=== PATIENT | female | born 1970 | race African-American/Black ===

== ENCOUNTER 2017-10-30 13:43 | Emergency (ER) | payer MEDICAID ==
[~2017-10-30] VITALS: Ht 165.1 cm; Wt 87.1 kg
[~2017-10-30 13:43] MED LIST: ABILIFY30 MG ORAL; AF130 GM TOPIC; AUGMENTIN 875-1 EAC1 ORAL; BENADRYL ALLERG25 M1 PO; CLOTRIMAZOLE AF30 GM TOPIC; DOXYCYCLINE MO100 MG ORAL; IBUPROFEN600 MG ORAL; NKM; WELLBUTRIN SR200 MG ORAL
[2017-10-30 14:02] VITALS: BP 129/79
--- NOTE | 2017-10-30 14:08 | Emergency Room Report ---
History of Present Illness General Chief Complaint: Upper Extremity Injury Source: Patient (Andrew Best) Present Illness HPI 47-year-old female patient presents ER complaining of swelling of her right fingers. Patient is wearing a cast on her hands and wrists due to reports that she fractured her thumb and wrist and fifth metacarpal. Reports cast has been on for 7 months. Reports that cast was put on after injuring her hand and wrist in [place] in [place]. Reports recently released. states she "does not know why" cast is still on. reports this cast was put on in July 2017. Reports has not followed up with primary care provider or contract administration specialist. reports is right-hand dominant. Reports swelling has gone down since this morning. Denies recent trauma. (Andrew Best) Allergies: Coded Allergies: No Known Allergies (Unverified , 12/06/13) Patient History Past Medical History: see triage record Now: No Reviewed Nursing Documentation: PMH: Agreed; PSxH: Agreed (Andrew Best) Nursing Documentation-PMH Past Medical History: No History, Except For Hx Asthma: Yes (Andrew Best) Review of Systems All Other Systems: negative except mentioned in HPI (Andrew Best) Physical Exam Vital Signs Date Time Temp Pulse Resp B/P (MAP) Pulse Ox O2 Delivery O2 Flow Rate FiO2 10/30/17 13:52 98.3 94 20 136/82 99 Room Air 98.2 Sp02 EP Interpretation: reviewed, normal General Appearance: well appearing, no apparent distress, alert, GCS 15, non- toxic Head: normocephalic, atraumatic Eyes: bilateral eye normal inspection, bilateral eye PERRL ENT: hearing grossly normal, normal pharynx, no angioedema, normal voice, uvula midline, moist mucus membranes Neck: full range of motion Respiratory: lungs clear, normal breath sounds, no rhonchi, no respiratory distress, no accessory muscle use, no wheezing, speaking full sentences Cardiovascular #1: regular rate, rhythm, no edema Cardiovascular #2: 2+ radial (R), 2+ radial (L) Musculoskeletal: back normal, digits/nails normal, gait/station normal, non- tender, decreased range of motion - right wrist and hand due to pain and stiffness, other - neurovascularly intact, Refill less than 2 seconds in all digits, no snuffbox tenderness, able to wiggle fingers, tender - right distal radius, distal right fifth metacarpal Psychiatric: mood/affect normal (Andrew Best) Medical Decision Making PA Attestation Dr. Herr is my supervising Physician whom patient management has been discussed with. (Andrew Best) Diagnostic Impression: Primary Impression: Encounter for cast removal Additional Impressions: Hx of fracture Fracture with nonunion ER Course Pt. presents to the ED c/o swelling of fingers on hand and wrist wearing cast. Ddx considered but are not limited to fracture, sprain, strain, contusion, dislocation. Vital signs: are WNL, pt. is afebrile Ordered X-ray and pain medication. ER COURSE no signs of swelling in fingers when compared to the other hand, will remove casts for better assessment. removed cast for x-ray. Provided with pain medication. An X-ray of the right hand was ordered, results show healing vs nondisplaced distal radius fracture, nonunion fracture of distal fifth metacarpal, per the preliminary reading. due to placement of cast and continued pain likely nonunion of fracture of fifth metacarpal, likely healing fracture at distal radius, no evidence of fracture at the first metacarpal or base of proximal phalanx of thumb. hand and wrist dirty, hands and wrist cleaned thoroughly, no signs of blisters, abrasions, or cuts on skin. Ulnar gutter Splint was applied to the right hand and wrist and was checked afterwards by me showing good alignment and support with distal neurovascular functioning intact. Patient instructed on RICE method: rest, ice, compression, elevation. Followup with primary care provider for referral to orthopedic surgeon for possible surgical correction of hand. Discuss further imaging with MRI/CT as needed. Provided with contact information for orthopedic urgent care if unable to contact PCP for referral to ortho. DISCHARGE: -Rx provided for Tylenol for pain symptoms. At this time pt. is stable for d/c to home. Patient is resting comfortably, in no acute distress, nontoxic appearing, talking without difficulty. Will provide printed patient care instructions, and any necessary prescriptions. Patient instructed to follow with primary care provider in 3 - 5 days and to request further orthopedic follow-up. Care plan and follow up instructions have been discussed with the patient prior to discharge. Take medications as directed. Patient questions asked and answered. Patient reports understanding and agreement to treatment plan. ER precautions given, patient instructed to return to ER immediately for any new or worsening of symptoms. - Please note that this Emergency Department Report was dictated using AppGratisclinical leader technology software, occasionally this can lead to erroneous entry secondary to interpretation by the dictation equipment. (Andrew Best) Other X-Ray Diagnostic Results Other X-Ray Diagnostic Results : X-Ray ordered: right hand # of Views/Limited Vs Complete: 3 View Indication: Pain EP Interpretation: Yes PA Xray: Interpretation reviewed, by supervising MD, and agrees with findings. Interpretation: no dislocation, no soft tissue swelling Impression: Other - nondisplaced fracture of distal radius, nonunion fracture of fifth metacarpal PA Scribe Text Loc Best PA-C (Andrew Best) Other X-Ray Diagnostic Results : Electronically Signed by: Scribe documentation reviewed by me and is accurate, Zhang Herr MD. (Zhang Herr M.D.) Last Vital Signs Date Time Temp Pulse Resp B/P (MAP) Pulse Ox O2 Delivery O2 Flow Rate FiO2 10/30/17 13:52 98.3 94 20 136/82 99 Room Air 98.2 (Andrew Best) Disposition: HOME, SELF-CARE Condition: Stable Scripts Acetaminophen* (TYLENOL EXTRA STRENGTH*) 500 Mg Tablet 500 MG ORAL Q8H PRN for Prn Headache/Temp > 101, #30 TAB 0 Refills Prov: Andrew Best 10/30/17 Patient Instructions: Boxer's Fracture, Radial Fracture Additional Instructions: Patient instructed to follow up with primary care provider and discuss further referral to orthopedics for further imaging and surgery. 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 Also nondisplaced fracture of radial styloid vs growth plate remnant. Patient instructed on RICE method: rest, ice, compression, elevation. Patient instructed to WBAT. Take medications as directed. Patient questions asked and answered. ER precautions given, patient instructed to return to ER immediately for any new or worsening of symptoms. Andrew Best Oct 30, 2017 14:08 Zhang Herr M.D. Nov 01, 2017 02:41
[2017-10-30] MEDS ORDERED: Acetaminophen 500mg (ES) tab ORAL ONE (14:15)
[2017-10-30] MEDS ORDERED: TYLENOL EXTRA500 MG ORAL (14:28)
--- NOTE | 2017-10-30 15:15 | Diagnostic Imaging Report ---
Indication: Pain Findings: 3 views of the right wrist were obtained. There is apparent offset at the area of the radial styloid on one of the views. This is possibly a nondisplaced fracture although could represent a remnant of the fused physis/growth plate. No malalignment, erosions or periostitis are identified. Soft tissues are unremarkable. Impression: Nondisplaced fracture of the radial styloid versus growth plate remnant. Suggest CT evaluation if there is history of recent trauma.
[2017-10-30 15:41] VITALS: BP 134/86
== END 2017-10-30 15:45 | disposition home or self-care (01) ==
LOC: EMR 14:26
DX: S62.396 Other fracture of fifth metacarpal bone, right hand (principal); X58.XXXD Exposure to other specified factors, subsequent encounter; J45.909 Unspecified asthma, uncomplicated
CPT/HCPCS: 99283

== ENCOUNTER 2018-04-05 13:50 | Emergency (ER) | payer MEDICAID ==
[~2018-04-05] VITALS: Ht 165.1 cm; Wt 81.6 kg
[~2018-04-05 13:50] MED LIST changes: +TYLENOL EXTRA500 MG ORAL
[2018-04-05 14:07] VITALS: BP 119/85
--- NOTE | 2018-04-05 14:55 | Emergency Room Report ---
History of Present Illness General Chief Complaint: Skin Rash/Abscess Source: Patient, Medical Record (Marlene Osborn) Present Illness HPI 47-year-old female presents to the emergency department complaining of localized 10 out of 10 in severity pain, tenderness, erythema and swelling to the right posterior neck progressive 3 days. Patient denies fevers or chills. Patient reports pain exacerbated upon bending her neck forward and she states that she is starting to have some intermittent dizziness as well as headache. Patient denies fevers or chills. Patient denies history of immunocompromise. She denies lesions elsewhere on the body. Tetanus UTD. (Marlene Osborn) Allergies: Coded Allergies: No Known Allergies (Unverified , 04/05/18) Patient History Past Medical History: see triage record Past Surgical History: none Pertinent Family History: none Now: No Immunizations: UTD Reviewed Nursing Documentation: PMH: Agreed; PSxH: Agreed (Marlene Osborn) Nursing Documentation-PMH Past Medical History: No History, Except For Hx Asthma: Yes (Marlene Osborn) Review of Systems All Other Systems: negative except mentioned in HPI (Marlene Osborn) Physical Exam Vital Signs Date Time Temp Pulse Resp B/P (MAP) Pulse Ox O2 Delivery O2 Flow Rate FiO2 04/05/18 14:07 98.1 92 16 119/85 98 Room Air Sp02 EP Interpretation: reviewed, normal General Appearance: alert, GCS 15, non-toxic, moderate distress Head: normocephalic, atraumatic Eyes: bilateral eye normal inspection, bilateral eye PERRL ENT: hearing grossly normal, normal voice Neck: full range of motion, other - posterior neck on the right side has anabscess 5cm in diameter. erythema, swelling , ttp, and fluctuance, LAD as well. Respiratory: lungs clear, normal breath sounds, speaking full sentences Cardiovascular #1: regular rate, rhythm Musculoskeletal: back normal, gait/station normal, normal range of motion, non- tender Neurologic: alert, oriented x3, responsive, motor strength/tone normal, sensory intact, normal gait, speech normal, grossly normal Psychiatric: judgement/insight normal Skin: no rash, warm/dry, well hydrated, other - posterior neck on the right side has anabscess 5cm in diameter. erythema, swelling , ttp, and fluctuance, LAD as well. Lymphatic: other - posterior cervical LAD right side (Marlene Osborn) Procedures Incision and Drainage Incision and Drainage : Consent: Verbal Site: right posterior neck Blade Size: 11 I & D Procedure: betadine prep, sterile drapes applied, sterile dressing applied, gauze wick placed Wound Location: other - neck Wound's Depth, Shape: linear Wound Length (cm): 1 Wound Explored: contaminated - moderate amt. of purulent d/c expressed Anesthesia: Lidocaine w/ Epi Volume Anesthetic (ccs): 2 Splint Applied?: No Sling Applied?: No Patient Tolerated: Well Complications: None (Marlene Osborn) Medical Decision Making PA Attestation Dr. Herr is my supervising Physician whom patient management has been discussed with. (Marlene Osborn) Diagnostic Impression: Primary Impression: Abscess ER Course 47-year-old female presents to the emergency department complaining of localized 10 out of 10 in severity pain, tenderness, erythema and swelling to the right posterior neck progressive 3 days. Patient denies fevers or chills. Patient reports pain exacerbated upon bending her neck forward and she states that she is starting to have some intermittent dizziness as well as headache. Patient denies fevers or chills. Patient denies history of immunocompromise. She denies lesions elsewhere on the body. Tetanus UTD. Ddx considered but are not limited to cellulitis, abscess, cystic acne, necrotizing fasciitis, insect bite. Vital signs: are WNL, pt. is afebrile H&PE are most consistent with ST abscess posterior head/neck. ORDERS: none required at this time, the diagnosis is clinical ED INTERVENTIONS: -[place] PO -I & D. -Wound packing placed. - Bacitracin and sterile dressing is applied - I reviewed this pt. CURES report and there are no active prescriptions for controlled substances in [place] at this time. --I do not identify an emergent condition at this time. With current presentation, pt. is stable for close outpatient follow up and conservative treatment. Pt to have Wound check in 48 hours. D/w pt. to return promptly to ED with worsening or new symptoms.- Pt. verbalizes' understanding and agreement with proposed treatment plan. DISCHARGE: At this time pt. is stable for d/c to home. Will provide printed patient care instructions, and any necessary prescriptions. Care plan and follow up instructions have been discussed with the patient prior to discharge. (Marlene Osborn) ER Course I examined this patient and agree with the treatment plan. (Zhang Herr MD) Last Vital Signs Date Time Temp Pulse Resp B/P (MAP) Pulse Ox O2 Delivery O2 Flow Rate FiO2 04/05/18 14:07 98.1 80 16 119/85 98 Room Air (Marlene Osborn) Disposition: HOME, SELF-CARE Condition: Stable Scripts Ibuprofen* (MOTRIN*) 600 Mg Tablet 600 MG ORAL THREE TIMES A DAY, #30 TAB 0 Refills Prov: Marlene Osborn 04/05/18 Hydrocodone Bit/Acetaminophen 5-325* (NORCO 5-325*) 1 Each Tablet 1 TAB ORAL Q6H PRN for For Pain, #8 TAB 0 Refills Prov: Marlene Osborn 04/05/18 Trimethoprim/Sulfamethoxazole 160/800* (BACTRIM DS TABLET*) 1 Each Tablet 1 TAB ORAL TWICE A DAY for 7 Days, #14 TAB Prov: Marlene Osborn 04/05/18 Cephalexin* (KEFLEX*) 500 Mg Capsule 500 MG ORAL EVERY 12 HOURS for 7 Days, #14 CAP 0 Refills Prov: Marlene Osborn 04/05/18 Patient Instructions: Abscess Additional Instructions: Take medications as directed. RETURN FOR WOUND CHECK AND PACKING REMOVAL IN 48-72 HOURS Make a Follow up appointment with a Primary Care Provider in 3-5 days, even if your symptoms have resolved. --Please review list of primary care clinics, if you do not already have a primary care provider Return sooner to ED if new symptoms occur, or current symptoms become worse. Do not drink alcohol, drive, or operate heavy machinery while taking [place] as this may cause drowsiness. - Please note that this Emergency Department Report was dictated using SnapRetailsalesperson burial needs technology software, occasionally this can lead to erroneous entry secondary to interpretation by the dictation equipment. Marlene Osborn Apr 05, 2018 14:55 Zhang Herr MD Apr 08, 2018 20:40
[2018-04-05] MEDS ORDERED: Norco 5mg/325mg tab ORAL ONE (15:00)
[2018-04-05] MEDS ORDERED: Lidocaine 1% 10mg/ml/Epi 0.005mg/ml 30ml vial INJ ONE (15:00)
[2018-04-05] MEDS ORDERED: Bacitracin Oint UD TOPIC ONE (15:00)
[2018-04-05 15:50] VITALS: BP 124/78
[2018-04-05] MEDS ORDERED: CEPHALEXIN500 MG ORAL (16:07)
[2018-04-05] MEDS ORDERED: IBUPROFEN600 MG ORAL (16:07)
[2018-04-05] MEDS ORDERED: BACTRIM DS TAB1 EAC1 ORAL (16:07)
[2018-04-05] MEDS ORDERED: NORCO 5-325 TA1 EACH ORAL (16:07)
[2018-04-05 16:39] VITALS: BP 119/85
== END 2018-04-05 16:39 | disposition home or self-care (01) ==
LOC: EMR 16:07
DX: L02.11 Cutaneous abscess of neck (principal); J45.909 Unspecified asthma, uncomplicated
CPT/HCPCS: 10060; 99284

== ENCOUNTER 2018-04-09 15:04 | Emergency (ER) | payer MEDICAID ==
[~2018-04-09] VITALS: Ht 165.1 cm; Wt 81.2 kg
[~2018-04-09 15:04] MED LIST changes: +BACTRIM DS TAB1 EAC1 ORAL; +CEPHALEXIN500 MG ORAL; +NORCO 5-325 TA1 EACH ORAL
[2018-04-09 15:15] VITALS: BP 98/71
--- NOTE | 2018-04-09 15:57 | Emergency Room Report ---
History of Present Illness General Chief Complaint: Wound Recheck/Suture Removal Source: Medical Record Present Illness HPI 37-year-old female presents to the emergency department for what 8 hour wound check status post incision and drainage to abscess of the posterior aspect of her head/neck on the right side. Patient denies fevers, chills, or pain. Patient states she's been taking her antibiotics as prescribed. Patient states that she still has been packing in place. She states she has not changed the dressing. She is up-to-date with tetanus vaccination. Allergies: Coded Allergies: No Known Allergies (Unverified , 04/05/18) Patient History Past Medical History: see triage record Past Surgical History: none Pertinent Family History: none Last Menstrual Period: 03/09/18 Reviewed Nursing Documentation: PMH: Agreed; PSxH: Agreed Nursing Documentation-PMH Past Medical History: No History, Except For Hx Asthma: Yes Review of Systems All Other Systems: negative except mentioned in HPI Physical Exam Vital Signs Date Time Temp Pulse Resp B/P (MAP) Pulse Ox O2 Delivery O2 Flow Rate FiO2 04/09/18 15:09 98.2 77 18 98/71 98 Room Air Sp02 EP Interpretation: reviewed, normal General Appearance: no apparent distress, alert, GCS 15, non-toxic Head: normocephalic, atraumatic Eyes: bilateral eye normal inspection, bilateral eye PERRL ENT: hearing grossly normal, normal voice Neck: full range of motion Respiratory: lungs clear, normal breath sounds, speaking full sentences Cardiovascular #1: regular rate, rhythm Musculoskeletal: back normal, gait/station normal, normal range of motion, non- tender Neurologic: alert, oriented x3, responsive, motor strength/tone normal, sensory intact, normal gait, speech normal, grossly normal Psychiatric: judgement/insight normal Skin: no rash, warm/dry, well hydrated, other - Right posterior Head/neck Abscess that is healing, surrounding erythema is almost completely resolved, wound packing in place, purulent drainage noted. Lymphatic: no adenopathy Medical Decision Making PA Attestation Dr. Skaggs is my supervising Physician whom patient management has been discussed with. Diagnostic Impression: Primary Impression: Change or removal of wound packing ER Course 37-year-old female presents to the emergency department for what 8 hour wound check status post incision and drainage to abscess of the posterior aspect of her head/neck on the right side. Patient denies fevers, chills, or pain. Patient states she's been taking her antibiotics as prescribed. Patient states that she still has been packing in place. She states she has not changed the dressing. She is up-to-date with tetanus vaccination. Ddx considered but are not limited to cellulitis, abscess, cystic acne, necrotizing fasciitis, insect bite. Vital signs: are WNL, pt. is afebrile H&PE are most consistent with healing previously incised abscess. ( greatly improved since last visit). ORDERS: none required at this time, the diagnosis is clinical ED INTERVENTIONS: -wound packing removed with gentle quick traction, pt. tolerated well and there were no complications. -Sterile dressing applied. d/w pt. to continue taking po abx and to look for signs of infection . DISCHARGE: At this time pt. is stable for d/c to home. Will provide printed patient care instructions, and any necessary prescriptions. Care plan and follow up instructions have been discussed with the patient prior to discharge. Last Vital Signs Date Time Temp Pulse Resp B/P (MAP) Pulse Ox O2 Delivery O2 Flow Rate FiO2 04/09/18 15:09 98.2 77 18 98/71 98 Room Air Disposition: HOME, SELF-CARE Condition: Stable Patient Instructions: Wound Check Additional Instructions: Take previously prescribed medications as directed. Follow up with a Primary Care Provider in 3-5 days, even if your symptoms have resolved. --Please review list of primary care clinics, if you do not already have a primary care provider Return sooner to ED if new symptoms occur, or current symptoms become worse. - Please note that this Emergency Department Report was dictated using 140 Proofcommutator inspector technology software, occasionally this can lead to erroneous entry secondary to interpretation by the dictation equipment. Marlene Osborn Apr 09, 2018 15:56
[2018-04-09 16:35] VITALS: BP 105/73
== END 2018-04-09 16:35 | disposition home or self-care (01) ==
LOC: EMR 15:45
DX: Z48.00 Encounter for change or removal of nonsurgical wound dressing (principal)
CPT/HCPCS: 99282

== ENCOUNTER 2019-07-04 12:10 | Emergency (ER) | payer MEDICAID ==
[~2019-07-04] VITALS: Ht 170.2 cm; Wt 68.0 kg
[2019-07-04] MEDS ORDERED: ZOLOFT25 MG ORAL (12:34)
[2019-07-04] MEDS ORDERED: SEROQUEL100 MG ORAL (12:34)
[2019-07-04 12:41] VITALS: BP 116/82
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
--- NOTE | 2019-07-04 12:42 | NUR ---
ED Nurse Note: urine sent to lab
[2019-07-04] MEDS ORDERED: Azithromycin 250mg tab ORAL ONE (13:15)
[2019-07-04] MEDS ORDERED: Lidocaine 1% MPF 10mg/ml 5ml INJ ONE (13:15)
--- NOTE | 2019-07-04 14:18 | NUR ---
ED Nurse Note: wet mount sent to lab
[2019-07-04 14:56] VITALS: BP 124/79
--- NOTE | 2019-07-04 15:00 | NUR ---
ED Nurse Note: 2nd urine specimen sent to lab.
[2019-07-04 15:50] LABS: APPEARANCE,URINE SLIGHTLY CLOUDY; BILIRUBIN, URINE NEGATIVE (NEGATIVE); COLOR,URINE PALE YELLOW; GLUCOSE, URINE (UA) NEGATIVE (NEGATIVE); KETONES,URINE NEGATIVE (NEGATIVE); LEUKOCYTE ESTERASE ,URINE NEGATIVE (NEGATIVE); NITRITE,URINE POSITIVE (NEGATIVE); PH,URINE 7 (4.5-8.0); PROTEIN,URINE NEGATIVE (NEGATIVE); UROBILINOGEN,URINE NORMAL MG/DL (0.0-1.0)
[2019-07-04] MEDS ORDERED: CEPHALEXIN500 MG ORAL (16:02)
[2019-07-04 16:05] VITALS: BP 132/81
--- NOTE | 2019-07-04 16:06 | NUR ---
ER DISCHARGE NOTE: Patient is cleared to be discharged per ERMD, pt is aox4, on room air, with stable vital signs. pt was given dc and prescription instructions, pt was able to verbalize understanding, pt id bandremoved. pt is able to ambulate with steady gait. pt took all belongings.
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
== END 2019-07-04 16:05 | disposition home or self-care (01) ==
LOC: EMR 13:05
DX: N76.0 Acute vaginitis (principal); R30.0 Dysuria
CPT/HCPCS: 81003; 87210; 96372; 96374; J0696; Q0144; Z7502; 99284